=== PATIENT | female | born 2000 | race American Indian/Alaskan Native ===

== ENCOUNTER 2019-08-09 01:44 | Outpatient (CLI) | payer MEDICAID ==
[2019-08-09] MEDS ORDERED: LACTATED RINGERS 1,000 ML IV ONE (02:46)
[2019-08-09 03:29] LABS: Bacteria,Urine 1+ /HPF (Negative); Bilirubin,Urine NEG (Negative); Blood,Urine NEG (Negative); Color,Urine Yellow (Yellow); Mucus,Urine FEW /HPF
[2019-08-09 03:30] LABS: Amphetamine Screen,Urine PRESUMPTIVE NEGATIVE; Benzodiazepines Screen,Urine PRESUMPTIVE NEGATIVE; Cocaine Screen,Urine PRESUMPTIVE NEGATIVE; Methadone Screen,Urine PRESUMPTIVE NEGATIVE; Opiate Screen,Urine PRESUMPTIVE NEGATIVE
[2019-08-09 04:04] LABS: Cannabinoid Screen,Urine PRESUMPTIVE POSITIVE
[2019-08-09 04:11] VITALS: BP 131/68
--- NOTE | 2019-08-09 04:48 | Ultrasound Report ---
Obstetrical ultrasound with biophysical profile. HISTORY: Decreased fluid. FINDINGS: Limited obstetrical ultrasound was performed. A viable intrauterine has hea rt tones at 134 bpm. Position is cephalic. Amniotic fluid index is 10.8 cm. Biophysical profile is normal at 8 of 8. IMPRESSION: 1. Viable intrauterine with amniotic fluid index of 10.8. 2. Biophysical profile 8/8. Signer Name: Vinny Jacobs MD Signed: 08/09/2019 4:44 AM Workstation Name: [id number]
== END 2019-08-09 04:45 | disposition home or self-care (01) ==
LOC: TRG 01:44
PROVIDERS: ATTEND Obstetrics & Gynecology
DX: O62.9 Abnormality of forces of labor, unspecified (principal); O26.893 Other specified pregnancy related conditions, third trimester; R10.2 Pelvic and perineal pain; O99.513 Diseases of the respiratory system complicating pregnancy, third trimester; J45.909 Unspecified asthma, uncomplicated; Z3A.35 35 weeks gestation of pregnancy
CPT/HCPCS: 59025; 76815; 76819; 80307; 81001; 96360; J7120